=== PATIENT | male | born 1995 | race African-American/Black ===

== ENCOUNTER 2020-07-27 22:11 | Emergency (ER) | payer OTHER ==
[2020-07-27 22:17] VITALS: BP 175/80; PULSE 68; TEMP 97; BMI 41.0
== END 2020-07-28 00:20 | disposition home or self-care (01) ==
LOC: JER 22:11
DX: R60.0 Localized edema (principal)
CPT/HCPCS: 93971-TC; 99284-25

== ENCOUNTER 2022-07-27 15:49 | Emergency (ER) | payer OTHER ==
[2022-07-27 15:55] VITALS: BP 124/72; PULSE 62; RESP 18; TEMP 97; BMI 40.1
[2022-07-27 17:36] LABS: PH,URINE 6.5 (5.0-8.0); URINE APPEARANCE CLEAR; URINE BILIRUBIN NEGATIVE (NEGATIVE); URINE COLOR YELLOW; URINE GLUCOSE (UA) NEGATIVE (NEGATIVE); URINE KETONE TRACE (NEGATIVE); URINE LEUK ESTERASE NEGATIVE (NEGATIVE); URINE NITRITE NEGATIVE (NEGATIVE); URINE PROTEIN NEGATIVE (NEGATIVE)
== END 2022-07-27 17:48 | disposition home or self-care (01) ==
LOC: JER 15:49
DX: N50.812 Left testicular pain (principal)
CPT/HCPCS: 36415; 76870-TC; 81003; 87086; 87491; 87591; 99284-25

== ENCOUNTER 2023-04-10 12:52 | Emergency (ER) | payer OTHER ==
[2023-04-10 12:58] VITALS: BP 123/68; PULSE 72; RESP 18; TEMP 98.5; BMI 40.1
[2023-04-10] MEDS ORDERED: IBUPROFEN 600 MG TABLET (FP) PO ONE (14:00)
[2023-04-10] MEDS: IBUPROFEN 600 MG TABLET (FP) PO ONE (14:12)
[2023-04-10 14:32] LABS: BASO % 0.7 % (0-2.0); EOS % 2.8 % (0-4.5); HEMATOCRIT 41.3 % (35.4-49); HEMOGLOBIN 13.7 GM/dL (11.7-16.9); LYMPH % 46.9 % (8-40); MCH 29.6 pg (25.7-33.7); MCHC 33.2 g/dl (32.0-35.9); MEAN CELL VOLUME 89.2 fl (80-96); MEAN PLT VOLUME 7.5 fl (7.5-11.1); MONO % 8.5 % (3.8-10.2); NEUT % 41.1 % (42.8-82.8); PLATELET COUNT 318 10^3/uL (134-434); RBC 4.63 M/mm3 (4.00-5.60); RDW 12.3 % (11.9-15.9); WHITE BLOOD COUNT 7.1 K/mm3 (4.0-10.0)
[2023-04-10 14:50] LABS: POTASSIUM 3.9 mmol/L (3.5-5.1)
[2023-04-10 14:53] LABS: ALBUMIN 3.6 g/dl (3.4-5.0); BLOOD UREA NITROGEN 14.8 mg/dL (7-18)
[2023-04-10 14:56] LABS: CREATININE 0.9 mg/dL (0.55-1.3)
[2023-04-10 14:57] LABS: BILIRUBIN,TOTAL 0.4 mg/dL (0.2-1)
[2023-04-10 14:58] LABS: TOT PROT 7.2 g/dl (6.4-8.2)
== END 2023-04-10 18:02 | disposition home or self-care (01) ==
LOC: JERFT 12:52
DX: R22.1 Localized swelling, mass and lump, neck (principal); R51.9 Headache, unspecified; R59.0 Localized enlarged lymph nodes
CPT/HCPCS: 36415; 76536-TC; 80053; 85025; 87651; 99284-25

== ENCOUNTER 2023-11-17 09:49 | Emergency (ER) | payer OTHER ==
[2023-11-17 11:48] VITALS: BP 120/77; PULSE 71; RESP 20; TEMP 98.4; BMI 39.9
== END 2023-11-17 11:10 | disposition home or self-care (01) ==
LOC: JERFT 09:49
DX: M79.662 Pain in left lower leg (principal); L03.116 Cellulitis of left lower limb
CPT/HCPCS: 99283-25

== ENCOUNTER 2024-02-20 19:23 | Emergency (ER) | payer OTHER ==
[2024-02-20 19:43] VITALS: BP 102/68; PULSE 96; RESP 18; TEMP 98.7; BMI 42.7
[2024-02-20 21:11] LABS: HEMATOCRIT 42.6 % (35.4-49); HEMOGLOBIN 14.4 GM/dL (11.7-16.9); MCH 29.4 pg (25.7-33.7); MCHC 33.7 g/dl (32.0-35.9); MEAN CELL VOLUME 87.4 fl (80-96); MEAN PLT VOLUME 7.6 fl (7.5-11.1); PLATELET COUNT 280 10^3/uL (134-434); RBC 4.88 M/mm3 (4.00-5.60); RDW 12.3 % (11.9-15.9); WHITE BLOOD COUNT 10.1 K/mm3 (4.0-10.0)
[2024-02-20 21:17] LABS: INR 0.99 (0.83-1.09); PROTHROMBIN TIME (PATIENT) 11.4 SEC (9.7-13.0)
[2024-02-20 21:20] LABS: ACTIVATED PTT 30.3 SECONDS (25.2-36.5)
[2024-02-20 21:33] LABS: POTASSIUM 3.9 mmol/L (3.5-5.1)
[2024-02-20 21:35] LABS: ALBUMIN 3.5 g/dl (3.4-5.0); BLOOD UREA NITROGEN 20.2 mg/dL (7-18); CALCIUM 8.8 mg/dL (8.5-10.1); MAGNESIUM 1.6 mg/dL (1.8-2.4)
[2024-02-20 21:39] LABS: CREATININE 1.3 mg/dL (0.55-1.3)
[2024-02-20 21:40] LABS: BILIRUBIN,TOTAL 0.8 mg/dL (0.2-1); TOT PROT 6.9 g/dl (6.4-8.2)
[2024-02-20] MEDS ORDERED: MAGNESIUM SULFATE IN WATER 2 GM/50 ML IVPB IVPB ONE (21:47)
[2024-02-20 21:53] LABS: ANISOCYTOSIS 0; MACROCYTOSIS 0
[2024-02-20] MEDS: MAGNESIUM OXIDE 400 MG TABLET (FP) PO ONE ×2 (21:56→22:05)
[2024-02-20] MEDS ORDERED: MAGNESIUM OXIDE 400 MG TABLET (FP) ONE (22:01)
== END 2024-02-20 23:45 | disposition home or self-care (01) ==
LOC: JER 19:23
DX: R55 Syncope and collapse (principal); E83.42 Hypomagnesemia; R00.2 Palpitations; R68.83 Chills (without fever); R42 Dizziness and giddiness; R06.2 Wheezing; Z20.822 Contact with and (suspected) exposure to COVID-19
CPT/HCPCS: 0241U-QW; 36415; 71046-TC-FY; 80053; 83735; 84484; 85025; 85610; 85730; 86850; 86900; 86901; 93005; 93010; 99285-25

== ENCOUNTER 2024-02-21 15:55 | Inpatient (IN) | payer OTHER ==
[2024-02-21 16:07] VITALS: BMI 42.7
[2024-02-21] MEDS ORDERED: CEFTRIAXONE 1 G/50 ML PREMIX 50 ML IVPB ONE (17:43)
[2024-02-21] MEDS ORDERED: ACETAMINOPHEN INJECTION 100 ML ONE (17:43)
[2024-02-21 17:46] LABS: VENOUS BASE EXCESS 0.2 mmol/L (-2-2); VENOUS O2 SATURATION 73.7 % (70-80); VENOUS PCO2 35.8 mmHg (38-52); VENOUS PH 7.442 (7.310-7.410)
[2024-02-21] MEDS: CEFTRIAXONE 1,000 MG in DEXTROSE 5%-WATER - 50 ML IVPB ONE (17:53)
[2024-02-21] MEDS: LACTATED RINGERS SOLUTION 1000 ML INFUS.BAG IV ONE ×2 (17:53→23:25)
[2024-02-21] MEDS: ACETAMINOPHEN 1000 MG/100 ML BAG IVPB ONE (17:53)
[2024-02-21 17:54] LABS: HEMATOCRIT 43.5 % (35.4-49); HEMOGLOBIN 14.9 GM/dL (11.7-16.9); MCH 29.8 pg (25.7-33.7); MCHC 34.2 g/dl (32.0-35.9); MEAN CELL VOLUME 87.1 fl (80-96); MEAN PLT VOLUME 7.8 fl (7.5-11.1); PLATELET COUNT 277 10^3/uL (134-434); RBC 4.99 M/mm3 (4.00-5.60); RDW 12.7 % (11.9-15.9); WHITE BLOOD COUNT 10.7 K/mm3 (4.0-10.0)
[2024-02-21 17:55] LABS: INR 1.15 (0.83-1.09); PROTHROMBIN TIME (PATIENT) 13.2 SEC (9.7-13.0)
[2024-02-21 17:58] LABS: ACTIVATED PTT 35.5 SECONDS (25.2-36.5)
[2024-02-21 17:59] LABS: POTASSIUM 3.9 mmol/L (3.5-5.1)
[2024-02-21 18:01] LABS: ALBUMIN 3.5 g/dl (3.4-5.0); CALCIUM 9.1 mg/dL (8.5-10.1)
[2024-02-21 18:05] LABS: CREATININE 1.2 mg/dL (0.55-1.3)
[2024-02-21 18:11] LABS: LACTIC ACID 2.5 mmol/L (0.4-2.0)
[2024-02-21 19:51] LABS: ANISOCYTOSIS 0; MACROCYTOSIS 0
[2024-02-21] MEDS ORDERED: CLINDAMYCIN 600MG PREMIX IVPB 600 MG/50 ML BAG IVPB ONE (21:01)
[2024-02-21] MEDS: CLINDAMYCIN 600MG PREMIX IVPB 600 MG/50 ML BAG IVPB ONE (21:19)
[2024-02-21] MEDS ORDERED: VANCOMYCIN 1 GM PREMIX (F) 1 GM/200 ML BAG ONE (21:21)
[2024-02-21] MEDS: VANCOMYCIN 1,000 MG in DEXTROSE 5%-WATER - 250 ML IVPB ONE (21:31)
[2024-02-21 21:40] LABS: URINE APPEARANCE CLEAR; URINE BILIRUBIN NEGATIVE (NEGATIVE); URINE COLOR YELLOW; URINE GLUCOSE (UA) NEGATIVE (NEGATIVE); URINE KETONE 2+ (NEGATIVE); URINE LEUK ESTERASE NEGATIVE (NEGATIVE); URINE NITRITE NEGATIVE (NEGATIVE); URINE PROTEIN NEGATIVE (NEGATIVE)
[2024-02-21 21:48] LABS: LACTIC ACID 2.6 mmol/L (0.4-2.0)
[2024-02-22] MEDS ORDERED: KETOROLAC TROMETHAMINE 15 MG/ML VIAL ONE (00:14)
[2024-02-22] MEDS: KETOROLAC TROMETHAMINE 30 MG/1 ML VIAL IVPUSH ONE (00:16)
[2024-02-22] MEDS ORDERED: ACETAMINOPHEN INJECTION 100 ML ONE (00:49)
[2024-02-22] MEDS: ACETAMINOPHEN 1000 MG/100 ML BAG IVPB ONE (01:04)
[2024-02-22] MEDS: SODIUM CHLORIDE 1,000 ML IV SCH ×3 (04:03→15:43)
[2024-02-22] MEDS: metroNIDAZOLE 500 MG TABLET PO ONE (04:04)
[2024-02-22] MEDS: ACETAMINOPHEN 325 MG TABLET (FP) PO PRN (06:17)
[2024-02-22] MEDS: ACETAMINOPHEN 1000 MG/100 ML BAG IVPB PRN (06:29)
[2024-02-22] MEDS: SODIUM CHLORIDE 1,000 ML IV STA (06:30)
[2024-02-22 08:27] LABS: BASO % 0.1 % (0-2.0); EOS % 4.2 % (0-4.5); HEMATOCRIT 36.2 % (35.4-49); HEMOGLOBIN 12.5 GM/dL (11.7-16.9); MCH 29.9 pg (25.7-33.7); MCHC 34.6 g/dl (32.0-35.9); MEAN CELL VOLUME 86.5 fl (80-96); MEAN PLT VOLUME 7.9 fl (7.5-11.1); MONO % 1.1 % (3.8-10.2); NEUT % 89.6 % (42.8-82.8); PLATELET COUNT 213 10^3/uL (134-434); RBC 4.19 M/mm3 (4.00-5.60); RDW 12.6 % (11.9-15.9); WHITE BLOOD COUNT 8.6 K/mm3 (4.0-10.0)
[2024-02-22 08:59] LABS: POTASSIUM 3.9 mmol/L (3.5-5.1)
[2024-02-22 09:06] LABS: ALBUMIN 2.5 g/dl (3.4-5.0); CALCIUM 7.7 mg/dL (8.5-10.1)
[2024-02-22 09:07] LABS: BILIRUBIN,TOTAL 0.8 mg/dL (0.2-1); BLOOD UREA NITROGEN 12.2 mg/dL (7-18); CREATININE 1.1 mg/dL (0.55-1.3)
[2024-02-22 09:09] LABS: TOT PROT 5.2 g/dl (6.4-8.2)
[2024-02-22] MEDS ORDERED: metroNIDAZOLE 250 MG TABLET PO SCH (10:00)
[2024-02-22] MEDS: VANCOMYCIN 1 GM PREMIX (F) 1 GM/200 ML BAG IVPB ONE (10:09)
[2024-02-22] MEDS: ENOXAPARIN NA (PORCINE) 40 MG/0.4 ML DISP.SYRIN SQ SCH (10:09)
[2024-02-22] MEDS: VANCOMYCIN 1 GM PREMIX (F) 1 GM/200 ML BAG IVPB SCH (16:01)
[2024-02-23] MEDS: ACETAMINOPHEN 1000 MG/100 ML BAG IVPB PRN (07:17)
[2024-02-23 07:59] LABS: BASO % 0.1 % (0-2.0); EOS % 6.4 % (0-4.5); HEMOGLOBIN 12.7 GM/dL (11.7-16.9); LYMPH % 14.9 % (8-40); MCH 29.5 pg (25.7-33.7); MCHC 34.3 g/dl (32.0-35.9); MEAN CELL VOLUME 86.2 fl (80-96); MEAN PLT VOLUME 8.2 fl (7.5-11.1); MONO % 2.5 % (3.8-10.2); NEUT % 76.1 % (42.8-82.8); PLATELET COUNT 194 10^3/uL (134-434); RDW 12.5 % (11.9-15.9); WHITE BLOOD COUNT 5.4 K/mm3 (4.0-10.0)
[2024-02-23 08:18] LABS: POTASSIUM 3.7 mmol/L (3.5-5.1)
[2024-02-23 08:20] LABS: ALBUMIN 2.6 g/dl (3.4-5.0); BLOOD UREA NITROGEN 8.3 mg/dL (7-18)
[2024-02-23 08:26] LABS: BILIRUBIN,TOTAL 0.6 mg/dL (0.2-1); TOT PROT 5.6 g/dl (6.4-8.2)
[2024-02-23] MEDS ORDERED: levoFLOXacin 750 MG TABLET PO SCH (10:00)
[2024-02-23] MEDS: VANCOMYCIN 1,000 MG in DEXTROSE 5%-WATER - 250 ML IVPB SCH (17:53)
[2024-02-24 08:56] LABS: HEMATOCRIT 39.6 % (35.4-49); HEMOGLOBIN 13.2 GM/dL (11.7-16.9); MCH 29.1 pg (25.7-33.7); MCHC 33.3 g/dl (32.0-35.9); MEAN CELL VOLUME 87.2 fl (80-96); MEAN PLT VOLUME 8.4 fl (7.5-11.1); PLATELET COUNT 244 10^3/uL (134-434); RBC 4.54 M/mm3 (4.00-5.60); RDW 12.8 % (11.9-15.9); WHITE BLOOD COUNT 4.2 K/mm3 (4.0-10.0)
[2024-02-24 09:19] LABS: POTASSIUM 4.1 mmol/L (3.5-5.1)
[2024-02-24 09:27] LABS: BLOOD UREA NITROGEN 8.8 mg/dL (7-18); CALCIUM 8.7 mg/dL (8.5-10.1)
[2024-02-24 09:30] LABS: CREATININE 0.9 mg/dL (0.55-1.3)
[2024-02-24 09:32] LABS: BILIRUBIN,TOTAL 0.4 mg/dL (0.2-1); TOT PROT 6.2 g/dl (6.4-8.2)
[2024-02-24 15:40] VITALS: RESP 18
[2024-02-25] MEDS: levoFLOXacin 750 MG TABLET PO SCH (06:50)
[2024-02-25 08:55] LABS: POTASSIUM 4.3 mmol/L (3.5-5.1)
[2024-02-25 09:02] LABS: BLOOD UREA NITROGEN 10.4 mg/dL (7-18)
[2024-02-25 09:05] LABS: CREATININE 0.8 mg/dL (0.55-1.3)
[2024-02-25 11:23] LABS: URINE APPEARANCE CLEAR; URINE BILIRUBIN NEGATIVE (NEGATIVE); URINE COLOR YELLOW; URINE GLUCOSE (UA) NEGATIVE (NEGATIVE); URINE KETONE NEGATIVE (NEGATIVE); URINE LEUK ESTERASE NEGATIVE (NEGATIVE); URINE NITRITE NEGATIVE (NEGATIVE); URINE PROTEIN NEGATIVE (NEGATIVE); URINE UROBILINOGEN 0.2 mg/dL (0.2-1.0)
[2024-02-25 15:33] VITALS: BP 134/84; PULSE 69; TEMP 98.4
== END 2024-02-25 17:19 | disposition home or self-care (01) | DRG 862 ==
LOC: JER 15:55 → JERBED 02-22 01:29 → J4W 02-22 02:54
PROVIDERS: ADMIT Internal Medicine; ATTEND Internal Medicine
DX: T81.44XA Sepsis following a procedure, initial encounter (principal); A41.9 Sepsis, unspecified organism; R65.20 Severe sepsis without septic shock; Y83.9 Surgical procedure, unspecified as the cause of abnormal reaction of the patient, or of later complication, without mention of misadventure at the time of the procedure
CPT/HCPCS: 0241U-QW; 36415; 70491-TC; 71045-TC-FY; 80048; 80053; 81003; 82803; 83605; 84484; 85025; 85027; 85610; 85730; 86850; 86900; 86901; 87040; 87086; 87186; 93005; 93010; 93306-TC; 99285-25; J0131